=== PATIENT | female | born 1980 | race African-American/Black ===

== ENCOUNTER 2020-08-18 15:22 | Emergency (ER) | payer MEDICAID ==
[~2020-08-18] VITALS: Ht 157.5 cm; Wt 128.6 kg
[2020-08-18] MEDS ORDERED: ONDANSETRON HCL 4 MG/2 ML VIAL ONE (15:43)
[2020-08-18] MEDS ORDERED: MORPHINE SULFATE 4 MG/ML SYRINGE IVP ONE (15:45)
[2020-08-18] MEDS ORDERED: SODIUM CHLORIDE 0.9% 1,000 ML IV ONE (15:45)
[2020-08-18] MEDS ORDERED: ONDANSETRON HCL 4 MG/2 ML VIAL IVP ONE (15:45)
[2020-08-18 17:55] VITALS: BP 132/77
== END 2020-08-18 17:55 | disposition home or self-care (01) ==
LOC: EMS 15:22
DX: S83.92XA Sprain of unspecified site of left knee, initial encounter (principal); M25.462 Effusion, left knee; E78.00 Pure hypercholesterolemia, unspecified; I10 Essential (primary) hypertension; X58.XXXA Exposure to other specified factors, initial encounter; Y93.44 Activity, trampolining; Y92.830 Public park as the place of occurrence of the external cause; Y99.8 Other external cause status
CPT/HCPCS: 29505; 73562; 96361; 96374; 96375; 99284; J2270; J2405; J7030

== ENCOUNTER 2023-01-05 12:26 | Emergency (ER) | payer MEDICAID ==
[~2023-01-05] VITALS: Ht 162.6 cm; Wt 138.6 kg
[2023-01-05 12:32] VITALS: TEMP 98
[2023-01-05] MEDS ORDERED: HYDROCODONE/ACETAMINOPHEN 5-325 MG TABLET PO ONE (15:30)
[2023-01-05] MEDS ORDERED: TRAM-559 PO (16:25)
[2023-01-05] MEDS ORDERED: PRED-554 PO (16:25)
[2023-01-05] MEDS ORDERED: PredniSONE 20 MG TABLET PO ONE (16:30)
[2023-01-05 16:50] VITALS: BP 152/82; PULSE 88; RESP 18
== END 2023-01-05 16:52 | disposition home or self-care (01) ==
LOC: EMS 12:26
DX: M71.9 Bursopathy, unspecified (principal); E78.00 Pure hypercholesterolemia, unspecified; E03.9 Hypothyroidism, unspecified; Z98.890 Other specified postprocedural states
CPT/HCPCS: 99284; 93931; 93971; 73080; J7512

== ENCOUNTER 2023-05-26 16:37 | Emergency (ER) | payer MEDICAID ==
[~2023-05-26] VITALS: Ht 157.5 cm; Wt 141.0 kg
[~2023-05-26 16:37] MED LIST: PRED-554 PO; TRAM-559 PO
[2023-05-26 17:23] VITALS: TEMP 98.1
[2023-05-26] MEDS ORDERED: LEVO50TA11 PO (17:38)
[2023-05-26] MEDS ORDERED: HYDR25TA PO (17:38)
[2023-05-26 17:55] LABS: BASOPHILS % (AUTO) 0.5 % (0.0-2.0); EOSINOPHILS % (AUTO) 1.2 % (1.0-6.0); HEMATOCRIT 35.5 % (36-46); LYMPHOCYTES # (AUTO) 3.5 K/uL (1.0-4.8); LYMPHOCYTES % (AUTO) 38.4 % (22.0-44.0); MEAN CORPUSCULAR HEMOGLOBIN 20.7 pg (26.0-34.0); MEAN CORPUSCULAR VOLUME 67 fL (80-100); MONOCYTES # (AUTO) 0.6 K/uL (0.1-1.0); MONOCYTES % (AUTO) 6.4 % (2.0-9.0); NEUTROPHILS # (AUTO) 4.8 K/uL (1.8-7.7); NEUTROPHILS % (AUTO) 53.5 % (40.0-70.0); PLATELET COUNT (AUTO) 298 K/uL (150-450); RED BLOOD CELL COUNT(AUTO) 5.32 MIL/uL (4.00-5.20); RED CELL DISTRIBUTION WIDTH 17.4 % (11.5-14.5)
[2023-05-26 17:56] LABS: APPEARANCE,URINE HAZY (CLEAR); BILIRUBIN,URINE NEGATIVE (NEGATIVE); COLOR,URINE LIGHT ORANGE (YELLOW); GLUCOSE, URINE (UA) NEGATIVE (NEGATIVE); KETONES,URINE NEGATIVE (NEGATIVE); LEUKOCYTE ESTERASE ,URINE TRACE (NEGATIVE); NITRATE,URINE NEGATIVE (NEGATIVE); OCCULT BLOOD,URINE LARGE (NEGATIVE); PH,URINE 7.5 (5.0-8.0); PROTEIN,URINE NEGATIVE (NEGATIVE); UROBILINOGEN,URINE <=1.0 mg/dL (<=1.0)
[2023-05-26 17:59] LABS: ANION GAP 9 mmol/L (8-16); CALCIUM, TOTAL 9.5 mg/dL (8.8-10.5); CARBON DIOXIDE 27 mmol/L (22-29); CHLORIDE 102 mmol/L (98-107); CREATININE 0.78 mg/dL (0.60-1.30); GLOMERULAR FILTR. RATE CALC > 60 mL/min (>60); GLUCOSE,RANDOM 95 mg/dL (70-110); SODIUM SERUM 138 mmol/L (136-145); UREA NITROGEN, BLOOD 9 mg/dL (7-18)
[2023-05-26 18:02] LABS: BACTERIA,URINE None Seen /HPF (None Seen); RBC,URINE >100 /HPF (0-2)
[2023-05-26 18:05] LABS: ALANINE AMINOTRANSFERASE 14 U/L (12-78); ALBUMIN 3.6 g/dL (3.4-5.0); ALKALINE PHOSPHATASE 85 U/L (46-116); ASPARTATE AMINOTRANSFERASE 11 U/L (15-37); BILIRUBIN,TOTAL 0.2 mg/dL (0.1-1.0); TOTAL PROTEIN, SERUM 8.2 g/dL (6.4-8.2)
[2023-05-26 19:41] LABS: RBC MORPHOLOGY COMMENT ABNORMAL RBC MORPH
[2023-05-26] MEDS: ACETAMINOPHEN/CODEINE 300-30 MG TABLET PO ONE (19:57)
[2023-05-26] MEDS: KETOROLAC TROMETHAMINE 30 MG/ML VIAL IVP ONE (20:01)
[2023-05-26 20:50] VITALS: BP 128/71; PULSE 77; RESP 20
== END 2023-05-26 21:18 | disposition home or self-care (01) ==
LOC: EMS 16:38
DX: R10.2 Pelvic and perineal pain (principal); E78.00 Pure hypercholesterolemia, unspecified; I10 Essential (primary) hypertension; E03.9 Hypothyroidism, unspecified
CPT/HCPCS: 99285; 96374; 76856; 80053; 81001; 84703; 85025; 36415; J1885